=== PATIENT | female | born 1985 | race Caucasian/White ===

== ENCOUNTER → 2017-09-29 12:01 | Outpatient (CLI) | payer OTHER, SELFPAY ==
[2017-09-29 13:29] LABS: Absolute Neutrophil Count 8.2 X10^3/uL (2.0-7.7); Basophil# 0.03 X10^3/uL; Basophil% 0.3 % (0-1); Eosinophil# 0.03 X10^3/uL; Eosinophils% 0.3 % (0-5); Hematocrit 39.1 % (37-47); Hemoglobin 13.5 g/dl (12.0-15.0); Mean Corp Hgb Conc 34.5 g/gl (32-36); Mean Corpuscular Hgb 28.9 pg (27.0-32.0); Mean Corpuscular Volume 83.7 fL (81-99); Monocyte# 0.52 X10^3/uL; Monocyte% 4.9 % (0-10); Neutrophil # 8.19 X10^3/uL (2.7-7.7); Neutrophil % 77.3 % (47-70); Platelet Count 220 K/mm3 (150-450); RBC Distribution Width CV 12.7 % (11.6-14.6); Red Blood Count 4.67 M/mm3 (4.2-5.4); White Blood Count 10.6 K/mm3 (4.4-11.0)
[2017-09-29 13:30] LABS: POSITIVE COUNT NO; POSITIVE DIFFERENTIAL NO; POSITIVE MORPHOLOGY NO
[2017-09-29 13:36] LABS: Anion Gap 9 (5-15); BUN 10 mg/dL (7-18); Calcium,Total 9.1 mg/dL (8.5-10.1); Chloride 101 mmol/L (98-107); Creatinine, Serum 0.72 mg/dL (0.55-1.02); EST Glomerular Filtration Rate 99 mL/min (>60); Est Glom Filt Rate - Afr Amer 120 mL/min (>60); Glucose 86 mg/dL (74-106); Potassium 3.6 mmol/L (3.5-5.1); Sodium Level 136 mmol/L (136-145)
== END ==
PROVIDERS: Family Provider Family Medicine; PCP Family Medicine; Visit Provider Family Medicine
DX: G47.00 Insomnia, unspecified (principal)
CPT/HCPCS: 36415; 80048; 85025

== ENCOUNTER → 2018-05-11 10:16 | Outpatient (CLI) | payer OTHER, SELFPAY ==
[2018-05-13 16:17] LABS: HPV Reflexed? NOT INDICATED
== END ==
PROVIDERS: PCP Family Medicine; Visit Provider Obstetrics & Gynecology
DX: Z12.4 Encounter for screening for malignant neoplasm of cervix (principal)
CPT/HCPCS: 88175; G0145

== ENCOUNTER → 2019-01-04 | Outpatient (CLI) | payer OTHER, SELFPAY ==
[2019-01-05 22:40] LABS: Rubella IgG WCH Employee 216.8 IU/mL
[2019-01-06 10:33] LABS: Rubeola IgG Ab > 300.0 AU/mL (Immune >29.9)
== END | disposition home or self-care (01) ==
LOC: LAB.FUTURE 12:11
PROVIDERS: Family Provider Family Medicine; PCP Family Medicine; Referring Provider Family Medicine; Visit Provider Family Medicine
DX: Z01.84 Encounter for antibody response examination (principal); Z23 Encounter for immunization
CPT/HCPCS: 36415; 86735; 86762; 86765

== ENCOUNTER → 2019-01-26 | Outpatient (CLI) | payer OTHER, SELFPAY ==
[2019-01-26 21:02] LABS: Chlamydia Trachomatis by PCR Negative (Negative); Neisserai gonorrhoeae by PCR Negative (Negative); Probe Check PASS; Sample Adequacy Control PASS; Specimen Processing Control PASS
== END | disposition home or self-care (01) ==
LOC: LABSPEC 16:26
PROVIDERS: Visit Provider Obstetrics & Gynecology
DX: Z11.3 Encounter for screening for infections with a predominantly sexual mode of transmission (principal)
CPT/HCPCS: 87491; 87591

== ENCOUNTER → 2019-02-03 | Outpatient (CLI) | payer OTHER, SELFPAY ==
[2019-02-03 17:25] LABS: Absolute Neutrophil Count 6.5 X10^3/uL (2.0-7.7); Basophil# 0.04 X10^3/uL; Basophil% 0.4 % (0-1); Hematocrit 35.8 % (37-47); Hemoglobin 12.3 g/dL (12.0-15.0); Lymphocyte % 27.2 % (19-41); Mean Corp Hgb Conc 34.4 g/dL (32-36); Mean Corpuscular Hgb 28.3 pg (27.0-32.0); Mean Corpuscular Volume 82.5 fL (81-99); Mean Platelet Vol. 10.4 fl (6.2-12.0); Monocyte# 0.59 X10^3/uL; NRBC Flagged by Analyzer 0 % (0-5); Neutrophil # 6.45 X10^3/uL (2.7-7.7); Neutrophil % 65.1 % (47-70); Platelet Count 170 K/mm3 (150-450); RBC Distribution Width CV 12.1 % (11.6-14.6); RBC Distribution Width SD 36.6 fl (35.1-43.9); Red Blood Count 4.34 M/mm3 (4.2-5.4); White Blood Count 9.9 K/mm3 (4.4-11.0)
[2019-02-03 17:30] LABS: Color, Urine Yellow (Yellow); Glucose, Dipstick Normal (Normal); Ketone-Dipstick Negative (Negative); Leukocyte Esterase-Dipstick Negative /ul (Negative); Nitrite-Dipstick Negative (Negative); Occult Blood-Urine Negative /ul (Negative); Protein-Dipstick Negative (Negative); Urine Bilirubin Dipstick Negative (Negative); Urine Clarity Clear (Clear); Urine Urobilinogen Normal (Normal)
[2019-02-03 17:51] LABS: Thyroid Stim Hormone (TSH) 1.06 uIU/mL (0.358-3.74)
[2019-02-04 09:54] LABS: HIV - WCH Non-Reactive (Nonreactive); Hepatitis B Surface Antigen Non-Reactive (Nonreactive); Hepatitis C Antibody Non-Reactive (Nonreactive); Rubella IgG 134.7 IU/mL
[2019-02-05 01:33] LABS: Prenatal RPR NONREACTIVE (NONREACTIVE)
== END | disposition home or self-care (01) ==
PROVIDERS: Obstetrics & Gynecology; Visit Provider Obstetrics & Gynecology
DX: Z34.81 Encounter for supervision of other normal pregnancy, first trimester (principal)
CPT/HCPCS: 36415; 81002; 84443; 85025; 86703; 86762; 86803; 87340

== ENCOUNTER 2019-03-19 06:02 | Day surgery (SDC) | payer OTHER, SELFPAY ==
--- NOTE | 2019-03-17 08:36 | PCM.HPOB.BLA ---
History and Physical Date of Admission: 03/19/19 HISTORY OF PRESENT ILLNESS: On 03/16/2019, Mathieu Olson, a 33 year old female 3 0 2 0 3, presented for: -- Ultrasound-- Limited Twins -- Here for u/s to ck for heart tones. No heart tones noted and Dr Duron to review options for review. LMT -- ? demise of mono/mono twins which began today. Mathieu claims it started today and has been present for today. It is located in the uterus. Severity is asymptomatic. An associated sign and symptom is none. As above. Here for ultrasound with twin monoamniotic, monochorionic . Cords entangled at sono and no heart tones noted visually or by Doppler. Mathieu is very tearful. unplanned, spouse with vasectomy now. She denies bleeding or cramping. SONO: 13-14 wk CRL on both twins with pericranial edema noted on both fetuses No heart tones identified on either fetus Amniotic fluid: Normal Advised of ultrasound findings as above, and recommended dilation and evacuation under sono guidance. Also offered medical induction for delivery, declined. EB ALLERGIES: Latex, Rash, itching, Levaquin, Halucinations MEDICATIONS HISTORY: Current medications prescribed by our practice are: 1. ondansetron 4 mg disintegrating tablet, 1 po q 6 hr prn N/V Patient is also takin. Lexapro 5 mg tablet, daily REVIEW OF SYSTEMS: GENERAL - fatigue SKIN - Denies skin changes EYES - Denies visual changes EARS - Denies difficulty hearing NOSE - Denies nasal congestion or bleeding MOUTH - Denies sore throat or difficulty swallowing NECK - Denies pain or swelling RESPIRATORY - Denies shortness of breath or wheezing CARDIOVASCULAR - Denies palpitations or chest pain GASTROINTESTINAL - nausea GENITOURINARY - bleeding, pressure and mild cramping MUSCULOSKELETAL - Denies joint or muscle pain NEUROLOGICAL - Denies localized numbness or weakness PSYCHIATRIC - Denies depression or anxiety ENDOCRINE - Denies heat or cold intolerance, weight loss or gain HEMATO-IMMUNOLOGIC - Denies excessive bleeding with cuts PAST HISTORY: Breast/Ovarian/Colon Cancers - Denies Infections - Chicken pox, Pneumonia and yeast inf Illnesses - mitral valve prolapse and anxiety Accidents - no injuries of consequence History of Abnormal PAPS - YES Hospitalizations - Childbirth and see surgery SURGICAL HISTORY: 1. 06/21/2008 Umbilical Herniorrhaphy Dontae Watts 2. wisdom teeth,2018 3. 08/11/2014 suction D Neena Duron M.D. MENSTRUAL HISTORY: LMP Known?- DefiniteAmount/Duration - 5 days, Regularity - Regular, LMP - 11/28/18, Age Onset Menarche - 10 PAST PREGNANCIES: Total Pregnancies - 5; Full Term Pregnancies - 3; Premature - 0; Abortions, Induced - 0; Abortions, Spontaneous - 2; Ectopics - 0; Multiple Births - 0; Living Children - 3 FAMILY HISTORY: Father - Unknown Disease; Mother - Leukemia; MaternalGrandparent - Cancer; PaternalGrandparent - Unknown Disease; PaternalGrandparent - Ischemic heart disease; SOCIAL HISTORY: Alcohol Use - None Smoking - Never Diet - balanced Diet and caffeine < 2 drinks per day Lifestyle - moderate stress lifestyle Exercise - usually active- walk/run. Less now. 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 (Inspect Manager) Spouse-Sig Other Phone No - [phone] Children Name(s) - Sierra 2007, Diane 2010, Melinda (EB) Control - recent loss PHYSICAL EXAMINATION BP- 130/72 Sitting, Right arm, regular cuff Weight- 112.00 lbs Height- 63.75 inch BMI:19.42 CONSTITUTIONAL - NAD, well nourished, and well developed, Thin and very tearful HEENT - normocephalic, atraumatic, sclerae anicteric NECK - no nuchal rigidity BREAST - deferred NEUROLOGICAL - Cranial nerves II-XII grossly intact PSYCHIATRIC - A and O to time, place, person, mood and affect ASSESSMENT: 1. Missed , Twin , Monochorionic/monoamniotic and First Trimester PLAN BY DIAGNOSIS: 1. Missed , Twin , Monochorionic/monoamniotic and First Trimester Reviewed ultrasound findings and advised that likely cord accident with mono-mono twins. Plan for suction dilation and evacuation under IV sedation vs general anesthesia. Ultrasound guidance for procedure to be certain full evacuation Suction D and E under ultrasound guidance arranged for Friday03/19/19 at 7:30 am Reviewed anticipated procedure, postop recovery. All questions answered. Consents signed and on chart. RTO for postop follow up appt in 2 wks. The visit was approximately 20 minutes in length with most of the time spent in discussion and counseling.
[2019-03-18 11:33] LABS: Hematocrit 36.9 % (37-47); Hemoglobin 12.6 g/dL (12.0-15.0); Mean Corp Hgb Conc 34.1 g/dL (32-36); Mean Corpuscular Volume 84.8 fL (81-99); Platelet Count 180 K/mm3 (150-450); RBC Distribution Width CV 13.1 % (11.6-14.6); RBC Distribution Width SD 40.1 fl (35.1-43.9); Red Blood Count 4.35 M/mm3 (4.2-5.4)
[2019-03-18 11:52] LABS: Prothrombin Time (Protime)PT. 13.1 SECONDS (11.7-14.9)
[2019-03-19 06:16] VITALS: BP 122/72; PULSE 91; RESP 15; TEMP 36.6; O2SAT 100; BMI 20.4
[2019-03-19] MEDS: Lactated Ringers 1,000 ML 150 ML IV (06:32)
--- NOTE | 2019-03-19 07:30 | POC_PTH ---
PATIENT: LILIYA WEAVER LOC: [facility] [place] U#:[id number] AGE/SX: 33/F ROOM: RE03/19/[address]: Dr. Neena Duron MD : [id number] BED: DIS: 03/19/2019 SPEC #: [id number] RECD: 03/19/19 08:52 STATUS: JOHN CHRISTINE #: [id number] MARGARET: 03/19/19 07:[address]: Neena Duron DEPT: SURGICAL PATHOLOGY RECD BY: Vinod Cordoba ENTERED: 03/19/19 09:20 SP TYPE: PROD CONC OTHR DR: Dr. Ronnell Cano MD Tissues: Product of conception, NOS Procedures: Surgery Specimen Level IV HEADER OPERATION: Dilation and curettage, suction PRE-OP DIAGNOSIS: Missed , twin , monochorionic/monoamniotic and first trimester TISSUE SUBMITTED: Products of conception MICROSCOPIC DIAGNOSIS Endometrium, curettage: Chorionic villi and parts consistent with products of conception. AM:connie 03/22/19 MICROSCOPIC DESCRIPTION Slides are reviewed. GROSS DESCRIPTION Received in fixative is one container labeled with the patient's name and designated products of conception. The specimen consists of multiple irregular fragments of light [id number] soft tissue that in aggregate measure 15 x 13 x 2 cm. Portions of macerated fetus are present in the specimen. New Accounts Banking Representative sections are submitted in two cassettes as follows: 1 - parts, 2 - placental tissue. / LATRELL:connie 03/19/19 TC:5 CPT: 34490
[2019-03-19] MEDS: Lubricating Jelly 60 GM Tube 30 GM TOPICAL (07:48)
--- NOTE | 2019-03-19 08:28 | DCINST_ITS ---
Discharge Diet: No Restrictions Discharge Activity: May not drive while taking narcotic pain medications., May Shower, May Take a Tub Bath Return to work on:: 04/05/19 May resume sexual activity in: 2 weeks Lifting Restrictions: no restrictions Additional Activity Instructions:: May return to work when ready or take up to two weeks. You may take EITHER two Ibuprofen or two Aleve every 8 hr if needed for pain. Tylenol #3 for more severe pain. Take the Methergine until gone. Call your doctor if you observe: Fever of 101 or Higher, Using more than one pad per hour, Uncontrolled pain Allergies/Adverse Reactions: Allergies iodine Allergy (Verified 03/19/19 06:14) Swelling latex Allergy (Verified 03/19/19 06:14) Rash levofloxacin [From Levaquin] Adverse Reaction (Verified 03/19/19 06:14) Other HALLUCINATIONS Medications to take at Discharge Escitalopram Oxalate [Lexapro] 5 mg PO DAILY 03/17/19 Vits [Prenatabs FA] 1 tab PO DAILY 03/17/19 Acetaminophen/Codeine #3 [Tylenol#3] 1 tablet PO Q4H PRN PRN 2 Days #5 tablet 03/19/19 Doxycycline 100 mg PO BID #6 cap 03/19/19 Methylergonovine [Methergine] 0.2 mg PO Q6H #5 tab 03/19/19 The following prescriptions were given: Doxycycline 100 mg PO BID #6 cap Transmission Status: Pending to [id number] Methylergonovine [Methergine] 0.2 mg PO Q6H #5 tab Transmission Status: Pending to [id number] Acetaminophen/Codeine #3 [Tylenol#3] 1 tablet PO Q4H PRN PRN 2 Days #5 tablet PRN Reason: Mod-Severe Pain (4-04/22) Transmission Status: Received by [id number] Primary Care Physician: Ronnell Cano MD [Primary Care Provider] - Test Results: Test results from this visit will be discussed in further detail at your follow- up appointment, if applicable. Please Follow Up With: Neena Duron MD - [phone] When: two weeks for postop check up Proposed Discharge Date: 03/19/19
--- NOTE | 2019-03-19 08:36 | OP.PCM_ITS ---
Report of Operation Date of Procedure: 03/19/19 Pre-Operative Diagnosis: 14 wk monoamniotic twin demise Post-Operative Diagnosis: same Surgery/Procedure Performed:: Suction dilation and evacuation, ultrasound guided Description of Surgical Findings:: uterus enlarged . nonviable twin IUP noted 14 wk EGA by CRL Parous appearing cervix. Uterus empty at end of procedure. All POC evacuated Type of Anesthesia:: Local MAC Anesthesiologist: Philly Randolph - MARCIANO Specimen's removed: products of conception Estimated Blood Loss (mL): 50 Fluids Replaced: LR Description of Procedure: SENIOR ORACLE APPLICATIONS DEVELOPER: N[employer] Technical Analyst. Concha [employer] employee After the risks, benefits, alternatives of the procedure were reviewed with the patient, informed consent was obtained. The patient was taken to the operating room with an IV running and placed in dorsal supine position on the operating table. She was given MAC IV sedation and repositioned to the dorsal lithotomy position and prepped and draped in the usual sterile fashion. A Graves speculum was placed into the vagina and the cervix was brought into view. Cervix was instilled with 10 cc of 1% lidocaine without epinephrine as a paracervical block using a 20-gauge spinal needle in the 2:00 4:00 8:00 and 10:00 positions. A single-tooth tenaculum was applied to the anterior lip of the cervix. The cervix was sequentially dilated to allow admission of the suction curette tip (10 mm) The procedure was performed under ultrasound guidance to full evacuation of the uterus. A sharp curettage followed by one final pass with the suction curette tip was then performed and tissue withdrawn was set aside for later pathology review. There was good crei in all quadrants This point the procedure was terminated the single-toothed tenaculum was removed from the anterior lip of the cervix and a Ray-Ritchie guaze was used to remove any remaining tissue and blood from the upper vagina and cervix. Excellent hemostasis was noted. The speculum was removed. The patient was returned to dorsal supine position and awakened from IV sedation and then transferred to her recovery room bed in stable condition after tolerating the procedure well. Sponge, lap, needle, and instrument counts were correct x2. Medications given intraoperatively included 10 cc of 1% lidocaine without epinephrine instilled as a paracervical block. Mathieu also received: Toradol 30 mg IV times one and methergine 0.2 mg IM times one. For complete listing the medications given intraoperatively, see the anesthesia record.
[2019-03-19 08:40] VITALS: BP 122/72; BP 95/68; PULSE 81; RESP 16; TEMP 36.8; O2SAT 99
[2019-03-19 08:48] VITALS: BP 102/64; BP 122/72; PULSE 71; RESP 16; O2SAT 100
[2019-03-19 08:51] VITALS: BP 100/69; BP 122/72; PULSE 68; RESP 16; O2SAT 100
[2019-03-19 08:54] VITALS: BP 122/72; BP 94/67; PULSE 66; RESP 16; TEMP 36.7; O2SAT 100
[2019-03-19 10:00] VITALS: BP 122/72
== END 2019-03-19 10:00 | disposition home or self-care (01) ==
LOC: SDC 06:03 → AC 06:03
PROVIDERS: Family Provider Family Medicine; PCP Family Medicine; Referring Provider Obstetrics & Gynecology; Visit Provider Obstetrics & Gynecology
PROC: (CPT 59821; principal; 2019-03-19 07:15)
DX: O02.1 Missed abortion (principal); O30.012 Twin pregnancy, monochorionic/monoamniotic, second trimester; O99.342 Other mental disorders complicating pregnancy, second trimester; F41.9 Anxiety disorder, unspecified; O99.412 Diseases of the circulatory system complicating pregnancy, second trimester; I34.1 Nonrheumatic mitral (valve) prolapse; Z3A.14 14 weeks gestation of pregnancy; Z79.899 Other long term (current) drug therapy
CPT/HCPCS: 01965; 59821; 36415; 85027; 85610; 85730; 86850; 86900; 86901; 88305; J7120; J2405

== ENCOUNTER 2019-05-03 07:13 | Emergency (ER) | payer OTHER, SELFPAY ==
[2019-05-03 07:15] VITALS: BP 124/89; PULSE 92; RESP 14; TEMP 36.7; O2SAT 100; BMI 21.2
--- NOTE | 2019-05-03 07:37 | ED.DCSUM_ITS ---
- ER Visit Summary Date of Service: 05/03/19 Chief Complaint: Lower abdominal and pelvic pain History of Present Illness: The patient is a 33 F no seen in past medical history. Approximately first week March she had a miscarriage of twins at approximately 5 months. She had a D and E done around March 19. She is G5, P3 Ab2 with both of those being miscarriages. States she was doing well she is been working out etc. Had a good follow-up visit with her GIFTS OFFICER. States 1 to 2 days of dysuria and lower abdominal discomfort. And discomfort also in her rectum. She is also developed some nausea and diarrhea. No fever. No dysuria. No vaginal bleeding or discharge. Says she has not had a. As of yet but that is not abnormal for her because she has irregular periods. The only abdominal surgery she is ever had is umbilical hernia repair. Physical Examination: Young female no acute distress. Vital signs are stable. She is afebrile. H EENT exam unremarkable. Neck nontender. Lungs clear to auscultation bilaterally. Heart regular rhythm no murmur. Rate about 90. Abdomen is soft. Nondistended. Normal bowel sounds. No peritoneal signs. She is tender in both lower quadrants and suprapubically. Also mildly in the left upper quadrant. There is no signs of obstruction. There is no obvious hernias or masses. Patient is moving all 4 extremities. Back is nontender. Neurologically she is awake and alert. Pelvic exam was done with a female nurse present in the room and the patient's . On speculum exam there is really no specific abnormality. No lesions or vaginal bleeding or blood. On bimanual exam she had uterine and right-sided tenderness. But also had right lower quadrant abdominal tenderness. I did not see any obvious pelvic mass. Left adnexa was nontender. Uterus was tender. There is no signs of PID with a speculum exam. Test Results: Seizures White count 10. Hemoglobin 13. Chemistries unremarkable normal creatinine and gap. Liver enzymes and lipase normal. UA negative. Serum test negative. CT abdomen pelvis IV contrast shows mesenteric adenitis and increased stool in the rectum consistent with constipation. The appendix was visualized and appeared normal. Read by the radiologist and reviewed by me. Emergency Department Course and Treatment: Patient with lower abdominal and pelvic pain after D and E approximately 6 weeks ago. Repeat exams patient is doing well. She and I and her went over all of her test results. They are comfortable with her being discharged home. Treatment Plan: Tylenol and/or Motrin for pain. Stool softener coffee for constipation and/or fruits, vegetables and fiber. Disposition: Discharge Impression: Lower abdominal and pelvic pain to mesenteric adenitis and constipation. This note was generated with [employer] dictation software. It may contain incorrect words, spelling, and punctuation that were not noted in review of the chart prior to signing ED Disposition - Plan for ED Patient: Referrals: Ronnell Cano MD [Primary Care Provider] -
[2019-05-03 08:08] LABS: Mucous, Urine 0 SEEN /hpf (<or=2+); Red Blood Cells-Urine 0 SEEN /hpf (0-5); White Blood Cells 0 SEEN /hpf (0-5)
[2019-05-03 08:12] LABS: Absolute Lymphocyte Count 1.09 X10^3/uL (0.83-4.51); Absolute Neutrophil Count 8.4 X10^3/uL (2.0-7.7); Basophil# 0.03 X10^3/uL; Basophil% 0.3 % (0-1); Eosinophil# 0.04 X10^3/uL; Eosinophils% 0.4 % (0-5); Hematocrit 40.1 % (37-47); Hemoglobin 13.2 g/dL (12.0-15.0); Lymphocyte # 1.09 X10^3/ul (4.0); Lymphocyte % 10.8 % (19-41); Mean Corp Hgb Conc 32.9 g/dL (32-36); Mean Corpuscular Hgb 28.7 pg (27.0-32.0); Mean Corpuscular Volume 87.2 fL (81-99); Mean Platelet Vol. 9.5 fl (6.2-12.0); Monocyte# 0.56 X10^3/uL; Monocyte% 5.5 % (0-10); NRBC Flagged by Analyzer 0 % (0-5); Neutrophil # 8.35 X10^3/uL (2.7-7.7); Neutrophil % 82.5 % (47-70); Platelet Count 148 K/mm3 (150-450); RBC Distribution Width CV 11.6 % (11.6-14.6); RBC Distribution Width SD 37.2 fl (35.1-43.9); White Blood Count 10.1 K/mm3 (4.4-11.0)
[2019-05-03 08:14] LABS: Color, Urine Yellow (Yellow); Glucose, Dipstick Normal (Normal); Ketone-Dipstick Negative (Negative); Leukocyte Esterase-Dipstick Negative /ul (Negative); Nitrite-Dipstick Negative (Negative); Occult Blood-Urine Negative /ul (Negative); Protein-Dipstick 15 mg/dl (Negative); Specific Gravity, Urine 1.015 (1.002-1.030); Urine Bilirubin Dipstick Negative (Negative); Urine Clarity Sl. Cloudy (Clear); Urine Urobilinogen Normal (Normal)
[2019-05-03 08:18] LABS: Internal QC Validated? YES +Cl - CLEAR BKGD; Pregnancy, Serum, hCG Quali. NEGATIVE Negative
[2019-05-03 08:21] LABS: Bacteria 1+ /hpf (None Seen); Squamous Epithelial Cells - UA 0-5 SEEN /hpf (5-10)
[2019-05-03 08:26] LABS: AST(SGOT) 17 U/L (15-37); Alanine Aminotransfer ALT/SGPT 16 U/L (13-56); Albumin, Serum 3.9 g/dL (3.2-5.0); Alkaline Phosphatase 50 U/L (45-117); Bilirubin, Direct 0.23 mg/dL (0.00-0.30); Globulin 3.6 g/dL (2.2-4.2); Protein, Total 7.5 g/dL (6.4-8.2)
[2019-05-03 08:33] LABS: Anion Gap 7 (5-15); BUN 10 mg/dL (7-18); BUN/Creat Ratio 12.3 RATIO (10-20); Calcium,Total 8.5 mg/dL (8.5-10.1); Chloride 108 mmol/L (98-107); Creatinine, Serum 0.81 mg/dL (0.55-1.02); EST Glomerular Filtration Rate 85 mL/min (>60); Est Glom Filt Rate - Afr Amer 103 mL/min (>60); Estimated Creatinine Clearance 80.19 ml/min; Glucose 103 mg/dL (74-106); Lipase 84 U/L (73-393); Potassium 3.7 mmol/L (3.5-5.1); Sodium Level 139 mmol/L (136-145)
--- NOTE | 2019-05-03 10:05 | CT_ITS ---
STUDY: CT ABDOMEN AND PELVIS WITH CONTRAST REASON FOR EXAM: Female, 33 years old. Lower abdominal and pelvic pain. Diarrhea. RADIATION DOSAGE (If Supplied By Facility): CTDIvol = ( 9.94 ) mGy, DLP = ( 304.19 ) mGycm TECHNIQUE: Transaxial images were obtained from the dome of the diaphragm to the symphysis pubis without oral contrast. IV Isovue 300 100ml was administered. Sagittal and coronal images were reconstructed. Individualized dose optimization techniques were used for this CT. COMPARISON: None. FINDINGS: The visualized lung bases are unremarkable. The visualized portions of the heart are within normal limits. Normal liver. Normal gallbladder and extrahepatic biliary system. Normal spleen. Normal pancreas. Normal bilateral adrenal glands. Normal right kidney. Normal left kidney. There is a small hiatal hernia. Normal small intestine. Moderate amount of fecal material is seen in the rectosigmoid colon. The appendix is visualized and appears normal. Normal abdominal aorta. Normal inferior vena cava. Normal retroperitoneum. Normal urinary bladder. Small follicles are seen in the left ovary. Small lymph nodes are seen in the mesentery in the right lower quadrant suggestive of mesenteric adenitis. Normal abdominal wall. Normal osseous structures. CT/Abdomen/Pelvis W IV Cont ONLY IMPRESSION: Small lymph nodes are seen in the right lower quadrant is suggestive of mesenteric adenitis. Moderate amount of fecal material is seen in the rectosigmoid colon Electronically Signed: Roger Brito, at 10:39 EDT , Service support ,
[2019-05-03] MEDS: 0.9% Normal Saline 1,000 ML 1000 ML IV (10:42)
[2019-05-03 12:00] VITALS: RESP 16
--- NOTE | 2019-05-03 12:42 | ED.DEP ---
ED Disposition - Plan for ED Patient: Disposition: Home or Assisted Living Instructions: Adenitis, Mesenteric, CONSTIPATION (Adult) Referrals: Ronnell Cano MD [Primary Care Provider] - As Needed Additional Instructions: Plenty of fluids, fruits, vegetables, fiber and stool softener as needed for the constipation. Mesenteric adenitis is inflammation of lymph nodes in your abdomen. That should improve. Motrin and/or Tylenol for pain. Follow-up if not improving return if worse.
[2019-05-03 12:53] VITALS: BP 124/76; PULSE 79; RESP 16; O2SAT 100
--- NOTE | 2019-05-03 12:54 | ED.RN ---
PT STARTED HAVING VAGINAL BLEEDING. DR. DIOR AWARE AND STATES TO HAVE PT FOLLOW UP WITH DR. ANGELES. REVIEWED D/C INSTRUCTIONS, FOLLOW UP CARE, AND S/S THAT WOULD WARRANT A RETURN TO THE ED WITH PT. PT VERBALIZED AN UNDERSTANDING AND DENIES FURTHER QUESTIONS FOR THIS RN. PT SKIN P/W/D, RESP EVEN AND UNLABORED, PT A&O X 3, NO DISTRESS NOTED. PT AMBULATED OUT OF ED, GAIT STEADY.
== END 2019-05-03 12:55 | disposition home or self-care (01) ==
PROVIDERS: Emergency Provider Emergency Medicine; Family Provider Family Medicine; PCP Family Medicine
DX: I88.0 Nonspecific mesenteric lymphadenitis (principal); K59.00 Constipation, unspecified; R10.30 Lower abdominal pain, unspecified; R10.2 Pelvic and perineal pain; N92.6 Irregular menstruation, unspecified; F32.9 Major depressive disorder, single episode, unspecified; Z79.899 Other long term (current) drug therapy
CPT/HCPCS: 74177; 80048; 80076; 81001; 83690; 84703; 85025; 96360; 96361; 99282; Q9967; A4216

== ENCOUNTER → 2020-07-11 09:19 | Outpatient (CLI) | payer OTHER, SELFPAY ==
[2020-07-15 10:00] LABS: HPV APTIMA, High Risk Negative (Negative)
== END ==
PROVIDERS: PCP Family Medicine; Visit Provider Obstetrics & Gynecology
DX: Z12.4 Encounter for screening for malignant neoplasm of cervix (principal)
CPT/HCPCS: 87624; 88175; G0145

== ENCOUNTER → 2020-08-11 14:27 | Outpatient (CLI) | payer OTHER, SELFPAY ==
--- NOTE | 2020-08-11 14:31 | BI_ITS ---
MAMMOGRAPHY - BILATERAL DIAGNOSTIC REASON FOR EXAM: Female, 34 years old. Three-week history of left axillary lump following: Covid vaccine PERTINENT HISTORY: Non-contributory. TECHNIQUE: Digital bilateral breast zeferino (3D mammographic acquisition) in the CC and MLO projections. 2-D mediolateral oblique (MLO) and craniocaudad (CC) views of both breasts were obtained. CAD: Full Field Digital Mammography with Computer Added Detection was performed. COMPARISON: None. Baseline examination. FINDINGS: Breast Composition: The breasts are extremely dense, which lowers the sensitivity of mammography. There are no dominant masses or suspicious calcifications. Scattered bilateral microcalcifications. No other significant abnormalities are identified. BI/DIAG MAMM W/CAD, BILAT IMPRESSION: Negative diagnostic mammogram. With the patient''s history of a palpable lump in the left axilla, correlation with ultrasound is recommended. ASSESSMENT CATEGORY: BIRADS Category 0: Incomplete. Need additional imaging evaluation. A letter regarding these results will be sent to the patient by the facility within 30 days. Approximately 10% of breast cancers are not detected by mammography. A normal mammogram should not delay biopsy of a clinically suspicious abnormality. Electronically Signed: Roger Brito MD at 15:30 EST , Service support ,
--- NOTE | 2020-08-11 14:31 | US_ITS ---
STUDY: ULTRASOUND BREAST - LEFT REASON FOR EXAM: Female, 34 years old. Palpable lump left breast. TECHNIQUE: Axial and longitudinal images of the LEFT breast were performed with a high resolution ultrasound transducer. # OF IMAGES: 11 COMPARISON: Comparison is made with prior mammogram done earlier today. FINDINGS: LEFT Breast: The palpable abnormality corresponds to a 2 cm x 1.9 cm x 1 cm benign-appearing lymph node. US/Breast Limited Unilateral IMPRESSION: The palpable abnormality corresponds to a 2 cm x 1.9 cm x 1 cm benign-appearing lymph node. ASSESSMENT CATEGORY: BIRADS Category 2: Benign. A letter regarding these results will be sent to the patient by the facility within 30 days. Electronically Signed: Roger Brito MD at 15:52 EST , Service support ,
== END ==
PROVIDERS: PCP Family Medicine; Referring Provider Obstetrics & Gynecology; Visit Provider Obstetrics & Gynecology
DX: N63.20 Unspecified lump in the left breast, unspecified quadrant (principal)
CPT/HCPCS: 76642; 77062; 77066; G0279

== ENCOUNTER → 2021-05-07 12:23 | Outpatient (CLI) | payer OTHER, SELFPAY ==
--- NOTE | 2021-05-07 12:26 | RAD_ITS ---
STUDY: X-RAY CHEST REASON FOR EXAM: Female, 35 years old. left side rib vs mucus plugging audible click with breathing TECHNIQUE: PA and lateral views of the chest. COMPARISON: None. FINDINGS: Mild pectus excavatum. The lungs are clear and expanded. There is no demonstrated pleural abnormality. Normal size heart. Normal mediastinum and dago. Normal visualized pulmonary arteries. Normal visualized aortic arch and descending thoracic aorta. There is a dextroscoliosis of the thoracic spine. Normal visualized ribs, clavicles, and shoulders. There is no demonstrated abnormality of the visualized soft tissue structures of the upper abdomen. RAD/Chest PA and Lateral IMPRESSION: 1. No airspace consolidation or pleural effusion. Electronically Signed: Saeid Corrales MD ([place]) at 6:51 EDT , Service support ,
== END ==
PROVIDERS: PCP Family Medicine; Referring Provider Family Medicine; Visit Provider Family Medicine
DX: J98.4 Other disorders of lung (principal)
CPT/HCPCS: 71046

== ENCOUNTER → 2021-05-28 09:15 | Outpatient (CLI) | payer OTHER, SELFPAY ==
[2021-05-28 10:06] LABS: Absolute Lymphocyte Count 1.48 X10^3/uL (0.83-4.51); Absolute Neutrophil Count 8.6 X10^3/uL (2.0-7.7); Basophil# 0.04 X10^3/uL; Basophil% 0.4 % (0-1); Eosinophil# 0.03 X10^3/uL; Eosinophils% 0.3 % (0-5); Hemoglobin 13.7 g/dL (12.0-15.0); Lymphocyte # 1.48 X10^3/ul (0.83-4.51); Lymphocyte % 13.8 % (19-41); Mean Corp Hgb Conc 35.1 g/dL (32-36); Mean Corpuscular Hgb 28.7 pg (27.0-32.0); Mean Corpuscular Volume 81.8 fL (81-99); Mean Platelet Vol. 9.6 fl (6.2-12.0); Monocyte# 0.55 X10^3/uL; Monocyte% 5.1 % (0-10); NRBC Flagged by Analyzer 0 % (0-5); Neutrophil # 8.61 X10^3/uL (2.7-7.7); Neutrophil % 80.1 % (47-70); Platelet Count 202 K/mm3 (150-450); RBC Distribution Width CV 11.9 % (11.6-14.6); RBC Distribution Width SD 35.1 fl (35.1-43.9); Red Blood Count 4.77 M/mm3 (4.2-5.4); White Blood Count 10.7 K/mm3 (4.4-11.0)
[2021-05-28 10:57] LABS: Thyroid Stim Hormone (TSH) 1.19 uIU/mL (0.358-3.74)
== END ==
PROVIDERS: PCP Family Medicine; Referring Provider Family Medicine; Visit Provider Family Medicine
DX: R53.83 Other fatigue (principal); F41.9 Anxiety disorder, unspecified
CPT/HCPCS: 36415; 84443; 85025

== ENCOUNTER 2021-07-30 11:26 | Outpatient (CLI) | payer OTHER, SELFPAY ==
[2021-07-30 14:22] LABS: Absolute Lymphocyte Count 2.33 X10^3/uL (0.83-4.51); Absolute Neutrophil Count 3.8 X10^3/uL (2.0-7.7); Basophil# 0.06 X10^3/uL; Basophil% 0.9 % (0-1); Eosinophil# 0.11 X10^3/uL; Eosinophils% 1.6 % (0-5); Hematocrit 38.5 % (37-47); Hemoglobin 12.8 g/dL (12.0-15.0); Lymphocyte # 2.33 X10^3/ul (0.83-4.51); Lymphocyte % 34.3 % (19-41); Mean Corp Hgb Conc 33.2 g/dL (32-36); Mean Corpuscular Hgb 28.3 pg (27.0-32.0); Mean Corpuscular Volume 85.2 fL (81-99); Mean Platelet Vol. 10.3 fl (6.2-12.0); Monocyte# 0.52 X10^3/uL; Monocyte% 7.6 % (0-10); NRBC Flagged by Analyzer 0 % (0-5); Neutrophil # 3.76 X10^3/uL (2.7-7.7); Neutrophil % 55.3 % (47-70); Platelet Count 226 K/mm3 (150-450); RBC Distribution Width CV 12.3 % (11.6-14.6); RBC Distribution Width SD 37.6 fl (35.1-43.9); Red Blood Count 4.52 M/mm3 (4.2-5.4); White Blood Count 6.8 K/mm3 (4.4-11.0)
[2021-07-30 14:45] LABS: Progesterone Level 0.43 ng/mL (See Comment)
[2021-07-30 15:08] LABS: ALB/GLOB Ratio 1.1 RATIO (0.9-2.4); AST(SGOT) 16 U/L (15-37); Alanine Aminotransfer ALT/SGPT 23 U/L (13-56); Albumin, Serum 4.1 g/dL (3.2-5.0); Alkaline Phosphatase 39 U/L (45-117); Anion Gap 6 (5-15); BUN 9 mg/dL (7-18); BUN/Creat Ratio 11.5 RATIO (10-20); Calcium,Total 8.8 mg/dL (8.5-10.1); Chloride 104 mmol/L (98-107); Creatinine, Serum 0.78 mg/dL (0.55-1.02); EST Glomerular Filtration Rate 87 mL/min (>60); Est Glom Filt Rate - Afr Amer 106 mL/min (>60); Estradiol 60.4 pg/mL; Free T3 2.4 pg/mL (2.18-3.98); Globulin 3.7 g/dL (2.2-4.2); Glucose 76 mg/dL (74-106); LDH 156 U/L (84-246); Potassium 3.8 mmol/L (3.5-5.1); Protein, Total 7.8 g/dL (6.4-8.2); Sodium Level 139 mmol/L (136-145); T4 Free Direct 1.15 ng/dL (0.76-1.46); Thyroid Stim Hormone (TSH) 1.82 uIU/mL (0.358-3.74)
[2021-08-01 12:49] LABS: HPV APTIMA, High Risk Negative (Negative)
== END 2021-07-30 23:59 | disposition short-term general hospital (02) ==
PROVIDERS: Obstetrics & Gynecology; PCP Family Medicine; Visit Provider Family Medicine
DX: Z12.4 Encounter for screening for malignant neoplasm of cervix (principal); R23.2 Flushing; Z51.81 Encounter for therapeutic drug level monitoring; R53.83 Other fatigue; F41.9 Anxiety disorder, unspecified; N93.8 Other specified abnormal uterine and vaginal bleeding; R61 Generalized hyperhidrosis
CPT/HCPCS: 36415; 80053; 82670; 83615; 84144; 84439; 84443; 84481; 85025; 87624; 88175; G0145

== ENCOUNTER → 2022-10-22 | Outpatient (CLI) | payer OTHER, SELFPAY ==
[2022-10-30 10:08] LABS: HPV APTIMA, High Risk Negative (Negative)
== END | disposition home or self-care (01) ==
LOC: LABSPEC 15:00
PROVIDERS: PCP Family Medicine; Visit Provider Obstetrics & Gynecology
DX: Z12.4 Encounter for screening for malignant neoplasm of cervix (principal)
CPT/HCPCS: 87624; 88175; G0145

== ENCOUNTER → 2023-01-17 | Outpatient (CLI) | payer OTHER, SELFPAY ==
[2023-01-17 15:59] LABS: hCG Titer Quant., Serum < 1 mIU/mL (1-3)
[2023-01-17 16:05] LABS: Free T3 1.8 pg/mL (2.18-3.98); T4 Free Direct 0.95 ng/dL (0.76-1.46); Thyroid Stim Hormone (TSH) 1.05 uIU/mL (0.358-3.74)
== END | disposition home or self-care (01) ==
LOC: WOBLAB 15:00
PROVIDERS: PCP Family Medicine; Referring Provider Family Medicine; Visit Provider Family Medicine
DX: E03.9 Hypothyroidism, unspecified (principal); R10.2 Pelvic and perineal pain
CPT/HCPCS: 36415; 84439; 84443; 84481; 84702

== ENCOUNTER → 2023-03-21 | Outpatient (CLI) | payer OTHER, SELFPAY ==
--- NOTE | 2023-03-21 08:54 | BI_ITS ---
MAMMOGRAPHY - BILATERAL DIAGNOSTIC REASON FOR EXAM: Female, 37 years old. Palpable lump in the axillary region of the left breast. PERTINENT HISTORY: Non-contributory. TECHNIQUE: Digital bilateral breast zeferino (3D mammographic acquisition) in the CC and MLO projections. 2-D mediolateral oblique (MLO) and craniocaudad (CC) views of both breasts were obtained. CAD: Full Field Digital Mammography with Computer Added Detection was performed. COMPARISON: Comparison is made with prior study dated August 11, 2020. FINDINGS: Breast Composition: The breasts are extremely dense, which lowers the sensitivity of mammography. There are no dominant masses or suspicious calcifications. Stable calcifications in both breasts more prominent on the left side. No other significant abnormalities are identified. There has been no significant change since the prior study. BI/DIAG MAMM W/CAD, BILAT IMPRESSION: Stable bilateral diagnostic mammogram. With the patient''s history of a palpable lump in the axillary region of the left breast, targeted ultrasound correlation is recommended. ASSESSMENT CATEGORY: BIRADS Category 0: Incomplete. Need additional imaging evaluation. A letter regarding these results will be sent to the patient by the facility within 30 days. Approximately 10% of breast cancers are not detected by mammography. A normal mammogram should not delay biopsy of a clinically suspicious abnormality. Electronically Signed: Roger Brito MD at 10:27 EDT ,
--- NOTE | 2023-03-21 09:46 | US_ITS ---
STUDY: ULTRASOUND BREAST - LEFT REASON FOR EXAM: Female, 37 years old. Left lateral breast fullness. TECHNIQUE: Axial and longitudinal images of the LEFT breast were performed with a high resolution ultrasound transducer. # OF IMAGES: 26 COMPARISON: Comparison is made with prior mammogram done earlier in the day as well as prior sonogram of the left breast dated August 11, 2020. FINDINGS: LEFT Breast: The upper lateral aspect of the left breast was examined with ultrasound. There is dense fibroglandular tissue. No sonographic abnormality is seen. US/Breast Limited Unilateral IMPRESSION: No sonographic abnormality is seen. ASSESSMENT CATEGORY: BIRADS Category 1: Negative. A letter regarding these results will be sent to the patient by the facility within 30 days. Electronically Signed: Roger Brito MD at 14:06 EDT ,
== END | disposition home or self-care (01) ==
LOC: OPBI 08:45
PROVIDERS: PCP Family Medicine; Referring Provider Family Medicine; Visit Provider Family Medicine
DX: N63.21 Unspecified lump in the left breast, upper outer quadrant (principal)
CPT/HCPCS: 76642; 77062; 77066; G0279

== ENCOUNTER → 2023-05-06 | Outpatient (CLI) | payer OTHER, SELFPAY ==
[2023-05-06 11:30] LABS: Free T3 2.1 pg/mL (2.18-3.98); T4 Free Direct 0.88 ng/dL (0.76-1.46); Thyroid Stim Hormone (TSH) 1.56 uIU/mL (0.358-3.74)
== END | disposition home or self-care (01) ==
LOC: LAB 09:41
PROVIDERS: PCP Family Medicine; Referring Provider Family Medicine; Visit Provider Family Medicine
DX: E03.9 Hypothyroidism, unspecified (principal)
CPT/HCPCS: 36415; 84439; 84443; 84481

== ENCOUNTER 2024-06-13 11:18 | Emergency (ER) | payer OTHER, SELFPAY ==
[2024-06-13 11:19] VITALS: BP 130/80; PULSE 100; RESP 16; TEMP 37.7; O2SAT 100; BMI 22.6
--- NOTE | 2024-06-13 11:29 | EX.ED.DYSGE1 ---
HPI History of Present Illness Chief Complaint: Fever Detail of Chief Complaint: Fever with systemic viral symptoms Informant: patient and spouse/S.O. Onset/Context/Timing Onset: Days (3 days prior to presentation) Context: Sudden Onset Timing: Continuous and Waxes and wanes Quality: Tmax 102.9, myalgias, arthralgias, upper respiratory symptoms Location: Generalized Maximum Severity: Severe Worsened by: Nothing Relieved by: Nothing Associated Symptoms Associated Symptoms: Not feeling well. Narrative Narrative: Patient is a 38-year-old woman. She is a non-smoker. 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 She presents with fever, chills, myalgias and arthralgias with predominantly upper respiratory symptoms. She is not care for anyone that specifically was diagnosed with influenza or COVID. She has been around ill individuals. She does complain of headache. She denies photophobia. Denies neck pain or neck stiffness. She denies any ear pain. She does report nausea. She has had no diarrhea. She denies decreased urine. She denies dysuria, frequency, urgency or hematuria. She has not noted any rash. She denies swelling of her joints. She is on Lexapro for depression. Prior similar symptoms: No Recent Illness/Hospitalization: No PFSH PFS Medical History Depression Anxiety Home Medications ?Medication ?Instructions ?Recorded ?Last Taken ?Type amoxicillin 875 mg-potassium 875 mg PO Q12H #14 TABLETS 06/13/24 Unknown Rx clavulanate 125 mg tablet azithromycin 250 mg tablet 250 mg PO DAILY #6 TABLETS 06/13/24 Unknown Rx escitalopram oxalate 10 mg tablet 10 mg PO DAILY 06/13/24 Unknown History (Lexapro) lorazepam 0.5 mg tablet 0.5 mg PO TID PRN PRN anxiety 06/13/24 Unknown History Allergy/AdvReac Type Severity Reaction Status Date / Time latex Allergy Rash Verified 06/13/24 11:21 levofloxacin (From Levaquin) AdvReac Other Verified 06/13/24 11:21 Family History no significant family his Social History household members: spouse and children housing: house current occupational status: employed Smoking Status: Never smoker ROS ROS ED Constitutional Constitutional ED: Reports chills, fever(s), sweats and other Details: Patient reports night sweats. She states she was soaked more than once during the night. Eyes Eyes: Reports other Details: No photophobia. ; Denies blurry vision, change in vision or diplopia ENT ENT ED: Reports rhinorrhea; Denies ear pain or sore throat Cardiovascular Cardiovascular: Denies chest pain, orthopnea, palpitations or paroxysmal nocturnal dyspnea Respiratory/Chest Respiratory/Chest: Reports cough and dyspnea; Denies dyspnea on exertion, orthopnea, paroxysmal nocturnal dyspnea or sputum Gastrointestinal Gastrointestinal: Reports abdominal pain; Denies diarrhea or nausea Genitourinary Genitourinary ED: Denies dysuria, hematuria or urinary frequency Musculoskeletal Musculoskeletal: Reports arthralgias and myalgias Integumentary Denies rash Neurologic Neurologic: Reports headache(s) and weakness; Denies paresthesias Hematologic/Lymphatic Hematologic/Lymphatic: Reports systems reviewed and no addt'l complaints, except as documented EXAM Physical Exam Const Vital Signs: 06/13/24 11:19 06/13/24 11:42 06/13/24 13:07 Temperature 99.9 F H 99.1 F Temperature Source Oral Pulse Rate 100 82 Respiratory Rate 16 18 Respiratory Effort Normal Non-Labored Respiratory Pattern Normal Blood Pressure 130/80 H Blood Pressure Mean 96 Pulse Ox 100 98 Oxygen Delivery Method Room Air Positive well nourished and well developed Constitutional Narrative: Vital signs are unremarkable. Patient appears ill. She does not appear toxic. General Appearance ED: well developed and pallor HEENT Reports dry mucous membranes; Denies moist mucous membranes HEENT Narrative: Head is atraumatic normocephalic. Ears normal. External auditory canal normal. TMs normal. Nares patent with slight discharge. There is no frontal, ethmoid or maxillary sinus tenderness. Posterior pharynx is normal. Mouth ED: Yes dry mucous membranes Mouth: dry mucous membranes Eyes PERRL and EOMs intact bilaterally General Eye ED: Negative for pale conjunctiva or scleral icterus Neck no lymphadenopathy, supple and no JVD Resp normal respiratory effort and No clear to auscultation bilaterally Auscultation: rales left base and lower (Egophony) Cardio regular rate, regular rhythm, S1 normal heart sound, S2 normal heart sound and no murmurs GI normal to inspection, nondistended, normoactive bowel sounds, non-tender, non-distended and no masses Extremity normal to inspection Extremity Narrative: There is no clubbing or cyanosis noted. Neuro oriented x3 and CN's II-XII intact bilaterally Sensorium / Orientation: alert Psych mental status grossly normal Skin no rashes or lesions noted, no wounds and skin turgor normal General Skin Exam: pallor; Negative for jaundice MDM MDM MDM Narrative Medical decision making narrative: Suspect patient has a systemic viral illness. There is no history of autoimmune disorder. There is no history of weight loss or weight gain to suggest malignancy either. Chest x-ray was obtained. This was dependent reviewed interpreted by me. The radiology report was read. He believes this interstitial findings are consistent with pneumonia. Clinically patient had left lower lobe pneumonia with egophony and abnormal breath sounds noted on the left posteriorly. Radiography Chest X-Ray - ED: 2 View, Read by ED Physician, Normal, Heart, Mediastinum, Bony Structures, No Acute Disease and Left Infiltrate (Compared to prior x-ray there is increased interstitial markings left lower lobe. There is nothing obvious on the lateral. This is only seen on the PA.) Diagnostic Testing: Clinical Impression(s) from Imaging Studies Chest X-Ray 06/13/24 11:49 IMPRESSION: Left lower lobe pneumonia. Electronically Signed: Rolando Ley MD at 12:32 EST , Discharge Plan Triage Chief Complaint: Fever ED Provider: Carrillo Tinoco Dx/Rx/DC Orders Clinical Impression: Left lower lobe pneumonia, Fever in adult Instructions: ED Pneumonia (Adult) Prescriptions: New azithromycin 250 mg tablet 250 mg PO DAILY Qty: 6 0RF Rx Instructions: Take 2 today then 1 daily thereafter amoxicillin-pot clavulanate 875-125 mg tablet 875 mg PO Q12H Qty: 14 0RF No Action lorazepam 0.5 mg tablet 0.5 mg PO TID PRN PRN (Reason: anxiety) escitalopram oxalate [Lexapro] 10 mg tablet 10 mg PO DAILY Stand Alone Forms: ED Work / School Excuse Primary Care Provider: Nava Mcallister Referrals: Nava Mcallister DO [Primary Care Provider] - 3-5 Days if not improving Print Language: Yakut Disposition Disposition: Home, Self Care Discharge Date/Time: 06/13/24 13:33
--- NOTE | 2024-06-13 11:49 | RAD_ITS ---
EXAM: XR CHEST, 2 VIEWS CLINICAL INDICATION: Cough, fever TECHNIQUE: Frontal and lateral views of the chest. COMPARISON: XR Chest dated 05/07/2021 FINDINGS: LUNGS AND PLEURAL SPACES: Airspace opacification within the right lower lobe consistent with pneumonia. Lungs are otherwise clear. No pleural effusion or pneumothorax. HEART: Normal heart size. MEDIASTINUM: No mediastinal or hilar mass. BONES/JOINTS: Mild dextroscoliosis of the thoracic spine is unchanged. RAD/Chest PA and Lateral IMPRESSION: Left lower lobe pneumonia. Electronically Signed: Rolando Ley MD at 12:32 EST ,
[2024-06-13 13:07] VITALS: PULSE 82; RESP 18; TEMP 37.3; O2SAT 98
== END 2024-06-13 13:33 | disposition home or self-care (01) ==
PROVIDERS: Emergency Provider Emergency Medicine; PCP Family Medicine; Visit Provider Emergency Medicine
DX: J18.9 Pneumonia, unspecified organism (principal); Z11.52 Encounter for screening for COVID-19; R51.9 Headache, unspecified; F32.A Depression, unspecified; Z79.899 Other long term (current) drug therapy
CPT/HCPCS: 71046; 87631; 99282

== ENCOUNTER → 2024-06-17 | Outpatient (CLI) | payer OTHER, SELFPAY ==
--- NOTE | 2024-06-17 15:09 | RAD_ITS ---
STUDY: X-RAY CHEST REASON FOR EXAM: Female, 38 years old. PNEUMONIA TECHNIQUE: PA and lateral COMPARISON: June 13, 2024 FINDINGS: The lungs are clear and expanded. There is no demonstrated pleural abnormality. Normal size heart. Normal mediastinum and dago. Normal visualized pulmonary arteries. Normal visualized aortic arch and descending thoracic aorta. Dorsal spine demonstrates mild scoliosis. Normal visualized ribs, clavicles, and shoulders. There is no demonstrated abnormality of the visualized soft tissue structures of the upper abdomen. There has been clearing of previously noted left lower lobe pneumonia RAD/Chest PA and Lateral IMPRESSION: No acute cardio pulmonary pathology status post clearing of previously noted left lower lobe pneumonia Electronically Signed: Gabriel Spence MD at 16:06 EST ,
== END | disposition home or self-care (01) ==
LOC: MTRAD 15:08
DX: J18.9 Pneumonia, unspecified organism (principal)
CPT/HCPCS: 71046

== ENCOUNTER → 2024-12-16 | Outpatient (CLI) | payer OTHER, SELFPAY ==
[2024-12-21 09:08] LABS: HPV APTIMA, High Risk Negative (Negative)
== END | disposition home or self-care (01) ==
LOC: LABSPEC 15:25
PROVIDERS: PCP Family Medicine; Referring Provider Nurse Practitioner Family; Visit Provider Nurse Practitioner Family
DX: Z12.4 Encounter for screening for malignant neoplasm of cervix (principal)
CPT/HCPCS: 87624; 88175; G0145